=== PATIENT | female | born 1990 | race Caucasian/White ===

== ENCOUNTER 2016-07-04 21:14 | Emergency (ER) | payer MEDICAID ==
[2016-07-04] MEDS ORDERED: METOCLOPRAMIDE 10 MG/2 ML VIAL ONE (22:05)
[2016-07-04] MEDS ORDERED: DIPHENHYDRAMINE 50 MG/ML VIAL ONE (22:06)
[2016-07-04] MEDS ORDERED: SODIUM CHLORIDE 0.9% 1,000 ML ONE (22:06)
[2016-07-04] MEDS ORDERED: KETOROLAC 30 MG/ML VIAL ONE (22:06)
== END 2016-07-04 23:01 | disposition home or self-care (01) ==
LOC: ER 21:14
DX: G43.009 Migraine without aura, not intractable, without status migrainosus (principal); Z79.899 Other long term (current) drug therapy
CPT/HCPCS: 96361; 96374; 96375